=== PATIENT | female | born 1940 | race Two or more races ===

== ENCOUNTER 2024-07-04 09:42 | Inpatient (IN) | payer OTHER ==
[~2024-07-04] VITALS: Ht 162.6 cm; Wt 78.9 kg
[2024-07-04] MEDS ORDERED: FUROsemide 40 MG/4 ML VIAL IV ONE (10:00)
[2024-07-04 10:22] LABS: HEMOGLOBIN 11.2 g/dL (13-16.00); MEAN CORPUSCULAR HEMOGLOBIN 35.3 pg (27.00-32.0); MEAN CORPUSCULAR HGB CONC 33.9 g/dl (32.0-36.0); RED BLOOD COUNT 3.18 M/uL (4.00-6.00); RED CELL DISTRIBUTION WIDTH 16.2 % (11.5-14.5)
[2024-07-04 10:27] LABS: PLATELET COUNT 129 K/uL (150-450)
[2024-07-04 10:53] LABS: INR 1.05; PARTIAL THROMBOPLASTIN TIME 23.1 SECONDS (22.0-34.0); PROTHROMBIN TIME 11.4 SECONDS (9.0-11.5)
[2024-07-04 11:00] LABS: URINE BILIRRUBIN Negative (NEGATIVE); URINE BLOOD Negative; URINE COLOR Yellow; URINE GLUCOSE Negative (NEGATIVE); URINE KETONE Negative (NEGATIVE); URINE LEUKOCYTE Negative; URINE NITRATE Negative; URINE PROTEIN 30 (NEGATIVE)
[2024-07-04 11:06] LABS: URINE BACTERIA 58.7 uL (0.0-1933); URINE EPITHELIAL CELLS 2.2 uL (0.0-38.8); URINE RBC 8.9 uL (0.0-20.8)
[2024-07-04 11:11] LABS: ABG PH 7.421 (7.35-7.45); ABG PO2 71.1 mmHg (80-100); ABG pCO2 35.6 mmHg (35-45); BASE EXCESS -1.2 mmol/l; BICARBONATE 22.7 mmol/l (23-25); SaO2 94.4 %; Tco2 23.8 mmol/l
[2024-07-04 11:12] LABS: allen test SATISFACTORY; o2 28 %; puncture site RADIAL RIGHT
[2024-07-04 11:23] LABS: ALBUMIN 3.1 gm/dL (3.4-5.0); BILIRUBIN TOTAL 1.07 mg/dL (0.3-1.2); CREATININE SERUM 1.52 mg/dL (0.70-1.30); GFR 44.02; GLOBULINA 3.6 G/DL (2.4-3.5); POTASSIUM 4.86 mEq/L (3.5-5.1); TOTAL PROTEIN 6.7 gm/dL (6.4-8.2)
[2024-07-04 11:24] LABS: URINE CAST 0.29 uL (0.0-1.40); URINE WBC 1.4 uL (0.0-23.2)
[2024-07-04 11:25] LABS: URINE APPEARANCE CLEAR
[2024-07-04] MEDS ORDERED: KETOROLAC TROMETHAMINE 30 MG VIAL IV ONE (11:45)
[2024-07-04] MEDS ORDERED: CEFTRIAXONE SODIUM 1,000 MG VIAL IV ONE (14:45)
[2024-07-04] MEDS ORDERED: CEFTRIAXONE SODIUM 1,000 MG VIAL ONE (16:24)
[2024-07-04] MEDS ORDERED: hydrALAZINE HCL 20 MG VIAL IV STA (16:32)
[2024-07-04] MEDS ORDERED: SPIRONOLACTONE 25 MG TABLET PO SCH (16:38)
[2024-07-04] MEDS ORDERED: ISOSORBIDE MONONITRATE 60 MG TABLET PO SCH (16:42)
[2024-07-04] MEDS ORDERED: AZITHROMYCIN 500 MG VIAL IV SCH (16:43)
[2024-07-04] MEDS ORDERED: hydrALAZINE HCL 20 MG VIAL IV PRN (16:45)
[2024-07-04] MEDS ORDERED: FUROsemide 20 MG TABLET PO SCH (17:00)
[2024-07-04] MEDS ORDERED: AMINO ACIDS/PROTEIN HYDROLYS 30 ML BLIST.PACK PO SCH (17:00)
[2024-07-04] MEDS ORDERED: LOSARTAN POTASSIUM 50 MG TABLET PO SCH (17:00)
[2024-07-04] MEDS ORDERED: PIPERACILLIN/TAZOBACTAM SODIUM 3.375 GM VIAL IV ONE (17:34)
[2024-07-04] MEDS ORDERED: AZITHROMYCIN 500 MG VIAL IV ONE (20:25)
[2024-07-04] MEDS ORDERED: ORPHENADRINE CITRATE 30 MG/ML AMPUL ONE (20:27)
[2024-07-04 20:48] VITALS: BP 155/78; O2SAT 98
[2024-07-04 20:53] VITALS: BP 155/78
[2024-07-04 23:58] VITALS: BP 175/71; O2SAT 97
[2024-07-05 01:31] VITALS: BP 162/60; O2SAT 95
[2024-07-05 02:33] VITALS: BP 161/63; O2SAT 97
[2024-07-05] MEDS ORDERED: FUROsemide 20 MG TABLET PO SCH (05:00)
[2024-07-05 05:54] VITALS: BP 137/58; O2SAT 97
[2024-07-05] MEDS ORDERED: LEVOTHYROXINE SODIUM 100 MCG TABLET PO SCH (06:00)
[2024-07-05 07:30] VITALS: BP 121/55; O2SAT 99
[2024-07-05] MEDS ORDERED: RIVAROXABAN 15 MG TABLET PO SCH (09:00)
[2024-07-05 11:28] VITALS: BP 115/52; O2SAT 98
[2024-07-05] MEDS ORDERED: FUROsemide 20 MG/2 ML VIAL IV SCH (13:00)
[2024-07-05 14:53] LABS: ABG PH 7.424 (7.35-7.45); ABG PO2 71.8 mmHg (80-100); ABG pCO2 37.9 mmHg (35-45); BASE EXCESS 0.1 mmol/l; BICARBONATE 24.2 mmol/l (23-25); SaO2 94.6 %; Tco2 25.4 mmol/l; allen test SATISFACTORY; o2 21 %; puncture site RADIAL RIGHT
[2024-07-05] MEDS ORDERED: ACETAMINOPHEN 500 MG GEL..CAP PO SCH (17:00)
[2024-07-05] MEDS ORDERED: SIMVASTATIN 40 MG TABLET PO SCH (17:00)
[2024-07-05] MEDS ORDERED: PANTOPRAZOLE SODIUM 40 MG/VIAL VIAL IV SCH (17:26)
[2024-07-05] MEDS ORDERED: TRAMADOL HCL 50 MG TABLET PO SCH (18:00)
[2024-07-05 18:39] VITALS: BP 122/59
[2024-07-06 01:16] VITALS: BP 121/63; O2SAT 96
[2024-07-06 05:49] VITALS: BP 123/60; O2SAT 95
[2024-07-06 08:17] VITALS: BP 116/71; O2SAT 95
[2024-07-06 17:44] VITALS: BP 114/65
[2024-07-06] MEDS ORDERED: FUROsemide 20 MG/2 ML VIAL IV SCH (21:00)
[2024-07-07] MEDS ORDERED: TRAMADOL HCL 50 MG TABLET PO SCH (01:00)
[2024-07-07 01:42] VITALS: BP 103/51; O2SAT 97
[2024-07-07 04:52] VITALS: BP 123/60; O2SAT 97
[2024-07-07 07:16] LABS: ALBUMIN 3.1 gm/dL (3.4-5.0); BILIRUBIN TOTAL 0.71 mg/dL (0.3-1.2); CALCIUM 10.1 mg/dL (8.5-10.1); CREATININE SERUM 1.61 mg/dL (0.55-1.02); GFR 30.56; GLOBULINA 3.5 G/DL (2.4-3.5); MAGNESIUM 2.3 mg/dL (1.8-2.4); PHOSPHOROUS 3.4 mg/dL (2.5-4.9); POTASSIUM 4.7 mEq/L (3.5-5.1); TOTAL PROTEIN 6.6 gm/dL (6.4-8.2)
[2024-07-07 07:38] LABS: HEMATOCRIT 35.3 % (36.0-45.00); HEMOGLOBIN 11.9 g/dL (12.0-15.00); MEAN CORPUSCULAR HEMOGLOBIN 35.2 pg (27.00-32.0); MEAN CORPUSCULAR HGB CONC 33.8 g/dl (32.0-36.0); PLATELET COUNT 140 K/uL (150-450); RED BLOOD COUNT 3.39 M/uL (4.00-6.00); RED CELL DISTRIBUTION WIDTH 15.9 % (11.5-14.5)
[2024-07-07 08:20] VITALS: BP 123/70; O2SAT 96
[2024-07-07 17:46] VITALS: BP 114/56
[2024-07-08 01:40] VITALS: BP 110/60; O2SAT 95
[2024-07-08 05:30] VITALS: BP 101/50; O2SAT 96
[2024-07-08 08:46] VITALS: BP 121/64; O2SAT 95
[2024-07-08] MEDS ORDERED: XARELTO15 MG PO (15:44)
[2024-07-08] MEDS ORDERED: ISOSORBIDE MONO60 MG PO (15:44)
[2024-07-08] MEDS ORDERED: COZAAR50 MG PO (15:44)
[2024-07-08] MEDS ORDERED: TIROSINT100 MCG PO (15:44)
[2024-07-08] MEDS ORDERED: BUMETANIDE0.5 MG PO (15:44)
[2024-07-08] MEDS ORDERED: ALDACTONE25 MG PO (15:44)
[2024-07-08] MEDS ORDERED: SIMVASTATIN40 MG PO (15:44)
[2024-07-08] MEDS ORDERED: COLACE100 MG PO (15:44)
[2024-07-08] MEDS ORDERED: INTEGRA PLUS C1 EACH PO (15:44)
[2024-07-08 16:15] VITALS: BP 121/59; O2SAT 96
== END 2024-07-08 15:37 | disposition home or self-care (01) | DRG 291 ==
LOC: ER 09:42 → EDSEX 11:46 → ER 11:46 → ICU-2 18:49 → MEDI 07-05 11:07
PROVIDERS: Emergency Medicine; ADMIT Internal Medicine; ATTEND Internal Medicine
PROC: BB24ZZZ Computerized Tomography (CT Scan) of Bilateral Lungs (ICD-10-PCS; 2024-07-04)
PROC: 4A12X4Z Monitoring of Cardiac Electrical Activity, External Approach (ICD-10-PCS; principal; 2024-07-05)
PROC: B246ZZZ Ultrasonography of Right and Left Heart (ICD-10-PCS; 2024-07-05)
DX: I50.43 Acute on chronic combined systolic (congestive) and diastolic (congestive) heart failure (principal); J18.0 Bronchopneumonia, unspecified organism; I48.20 Chronic atrial fibrillation, unspecified; J98.11 Atelectasis; J90 Pleural effusion, not elsewhere classified; N18.9 Chronic kidney disease, unspecified; R09.02 Hypoxemia; D69.6 Thrombocytopenia, unspecified; D64.9 Anemia, unspecified; I11.0 Hypertensive heart disease with heart failure; E03.9 Hypothyroidism, unspecified